=== PATIENT | female | born 1945 | race Caucasian/White ===

== ENCOUNTER 2017-09-01 14:39 | Inpatient (IN) | payer OTHER ==
[~2017-09-01] VITALS: Ht 149.9 cm; Wt 63.0 kg
[~2017-09-01 14:39] MED LIST: AMLO10TA2 PO; CYCL10TA9 PO; FURO20TA4 PO; LANS15CA18 PO; METO50TA16 PO; OXYB5TAB11 PO; THIO1CAP PO; THIO2CAP2 PO
[2017-09-01] MEDS ORDERED: LORAZEPAM 0.5 MG TABLET PO PRN (16:00)
[2017-09-01] MEDS ORDERED: TEMAZEPAM 7.5 MG CAPSULE PO PRN (16:00)
[2017-09-01] MEDS ORDERED: MAGNESIUM HYDROXIDE 30 ML UDC PO PRN (16:00)
[2017-09-01] MEDS ORDERED: ACETAMINOPHEN 325 MG TABLET PO PRN (16:00)
[2017-09-01] MEDS ORDERED: MAG HYDROX/AL HYDROX/SIMETH 30 ML UDC PO PRN (16:00)
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
[2017-09-01] MEDS: METOPROLOL TARTRATE 50 MG TABLET PO SCH (17:53)
[2017-09-01] MEDS: CYCLOBENZAPRINE 10 MG TABLET PO SCH (17:54)
[2017-09-01] MEDS ORDERED: CHLO4TAB PO (18:03)
[2017-09-01] MEDS ORDERED: CITA20TA19 PO (18:03)
[2017-09-01] MEDS ORDERED: ATOR20TA PO (18:03)
[2017-09-01] MEDS ORDERED: ASPI-1152 PO (18:03)
[2017-09-01] MEDS ORDERED: DIME25TA2 PO (18:03)
[2017-09-01] MEDS ORDERED: TIZA4TAB11 PO (18:16)
[2017-09-01] MEDS ORDERED: DOCU100C36 PO (18:16)
[2017-09-01] MEDS ORDERED: QUET200T PO (18:16)
[2017-09-01] MEDS ORDERED: FLUP5TAB PO (18:16)
[2017-09-01] MEDS ORDERED: METO50TA16 PO (18:16)
[2017-09-01] MEDS ORDERED: Z GUARD REMEDY 4 OZ OINT TP PRN (18:30)
[2017-09-01 20:31] VITALS: BP 149/71
[2017-09-01] MEDS: Z GUARD REMEDY 2 OZ OINT TP SCH (21:57)
[2017-09-02 07:44] VITALS: BP 155/71
[2017-09-02] MEDS: PANTOPRAZOLE 40 MG TABLET.DR PO SCH (08:18)
[2017-09-02] MEDS: OXYBUTYNIN CHLORIDE 5 MG TABLET PO SCH (08:18)
[2017-09-02] MEDS: CYCLOBENZAPRINE 10 MG TABLET PO SCH ×2 (08:19→16:36)
[2017-09-02] MEDS: METOPROLOL TARTRATE 50 MG TABLET PO SCH ×2 (08:19→16:37)
[2017-09-02] MEDS: FUROSEMIDE 20 MG TABLET PO SCH (08:31)
[2017-09-02] MEDS: AMLODIPINE BESYLATE 10 MG TABLET PO SCH (08:31)
[2017-09-02] MEDS: Z GUARD REMEDY 2 OZ OINT TP SCH ×2 (09:00→21:00)
[2017-09-02 16:00] VITALS: BP 138/70
[2017-09-02] MEDS: QUETIAPINE FUMARATE 100 MG TABLET PO SCH (16:36)
[2017-09-02] MEDS: CITALOPRAM HYDROBROMIDE 20 MG TABLET PO SCH (16:51)
--- NOTE | 2017-09-02 17:44 | NUR ---
GPS/RN NIKOLAS ADMINISTERED FOR INDIGESTION, WILL CONTINUE TO MONITOR.
[2017-09-02 20:00] VITALS: BP 126/56
--- NOTE | 2017-09-03 07:48 | NUR ---
WOUND CONSULT WOUND CARE RECEIVED CONSULT FOR REDNESS ON PERIANAL AREA. WOUND CARE WILL DEFER TO SURGICAL TEAM WHO ARE CURRENTLY FOLLOWING. PATIENT WITH CURRENT MANUELITO AT 17. ALL PRESSURE ULCER PREVENTION MEASURES NOTED TO BE IN PLACE.
[2017-09-03 08:00] VITALS: BP 124/68
[2017-09-03] MEDS: CITALOPRAM HYDROBROMIDE 20 MG TABLET PO SCH (10:09)
[2017-09-03] MEDS: DOCUSATE SODIUM 100 MG CAPSULE PO PRN (10:09)
[2017-09-03] MEDS: FUROSEMIDE 20 MG TABLET PO SCH (10:09)
[2017-09-03] MEDS: CYCLOBENZAPRINE 10 MG TABLET PO SCH ×2 (10:09→17:46)
[2017-09-03] MEDS: QUETIAPINE FUMARATE 100 MG TABLET PO SCH ×2 (10:09→17:46)
[2017-09-03] MEDS: PANTOPRAZOLE 40 MG TABLET.DR PO SCH (10:10)
[2017-09-03] MEDS: METOPROLOL TARTRATE 50 MG TABLET PO SCH ×2 (10:10→17:00)
[2017-09-03] MEDS: OXYBUTYNIN CHLORIDE 5 MG TABLET PO SCH (10:10)
[2017-09-03] MEDS: AMLODIPINE BESYLATE 10 MG TABLET PO SCH (10:10)
[2017-09-03] MEDS: Z GUARD REMEDY 2 OZ OINT TP SCH ×2 (10:11→21:09)
[2017-09-03] MEDS: ASPIRIN EC 81 MG TABLET.DR PO SCH (10:12)
[2017-09-03] MEDS: ATORVASTATIN 10 MG TABLET PO SCH (10:12)
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
[2017-09-03 16:07] VITALS: BP 118/59
--- NOTE | 2017-09-03 18:33 | NUR ---
Discharge Planning: EPHRAIM contacted pts son, Satnam James in [place] to inform him of pts pending discharge plan per psychiatric report (i.e. pt may discharge on 09/06/17). Pts son is very concerned about releasing his mother to the streets and asked that she not be released "until I can pick her up." Pts son reported that he would catch the next flight out to [place] in order to picking tech his mother. SW will follow up on Wednesday to ensure pt is safely and adequately discharged.
[2017-09-03 20:00] VITALS: BP 130/72
[2017-09-04 08:00] VITALS: BP 150/69
[2017-09-04] MEDS: DOCUSATE SODIUM 100 MG CAPSULE PO PRN (08:33)
[2017-09-04] MEDS: CYCLOBENZAPRINE 10 MG TABLET PO SCH ×2 (08:33→17:27)
[2017-09-04] MEDS: CITALOPRAM HYDROBROMIDE 20 MG TABLET PO SCH (08:33)
[2017-09-04] MEDS: ASPIRIN EC 81 MG TABLET.DR PO SCH (08:33)
[2017-09-04] MEDS: AMLODIPINE BESYLATE 10 MG TABLET PO SCH (08:33)
[2017-09-04] MEDS: PANTOPRAZOLE 40 MG TABLET.DR PO SCH (08:33)
[2017-09-04] MEDS: FUROSEMIDE 20 MG TABLET PO SCH (08:33)
[2017-09-04] MEDS: QUETIAPINE FUMARATE 100 MG TABLET PO SCH ×2 (08:33→17:27)
[2017-09-04] MEDS: OXYBUTYNIN CHLORIDE 5 MG TABLET PO SCH (08:33)
[2017-09-04] MEDS: Z GUARD REMEDY 2 OZ OINT TP SCH ×2 (08:34→21:14)
[2017-09-04] MEDS: METOPROLOL TARTRATE 50 MG TABLET PO SCH ×2 (08:34→17:27)
[2017-09-04] MEDS ORDERED: BOOST FOOD- BERRY 237 ML BOX PO SCH (09:00)
[2017-09-04] MEDS: ATORVASTATIN 10 MG TABLET PO SCH (12:12)
[2017-09-04 16:00] VITALS: BP 116/68
[2017-09-05 08:14] VITALS: BP 145/89
[2017-09-05] MEDS: PANTOPRAZOLE 40 MG TABLET.DR PO SCH (09:05)
[2017-09-05] MEDS: QUETIAPINE FUMARATE 100 MG TABLET PO SCH ×2 (09:06→17:57)
[2017-09-05] MEDS: ASPIRIN EC 81 MG TABLET.DR PO SCH (09:06)
[2017-09-05] MEDS: OXYBUTYNIN CHLORIDE 5 MG TABLET PO SCH (09:06)
[2017-09-05] MEDS: FUROSEMIDE 20 MG TABLET PO SCH (09:06)
[2017-09-05] MEDS: ATORVASTATIN 10 MG TABLET PO SCH (09:08)
[2017-09-05] MEDS: CITALOPRAM HYDROBROMIDE 20 MG TABLET PO SCH (09:08)
[2017-09-05] MEDS: CYCLOBENZAPRINE 10 MG TABLET PO SCH ×2 (09:09→17:55)
[2017-09-05] MEDS: AMLODIPINE BESYLATE 10 MG TABLET PO SCH (09:09)
[2017-09-05] MEDS: Z GUARD REMEDY 2 OZ OINT TP SCH ×2 (09:11→21:25)
[2017-09-05] MEDS: METOPROLOL TARTRATE 50 MG TABLET PO SCH ×2 (09:12→17:55)
[2017-09-05 10:26] LABS: BASOPHILS % (AUTO) 0.4 % (0.0-2.0); EOSINOPHILS # (AUTO) 0.1 /CMM (0.0-0.7); EOSINOPHILS % (AUTO) 1.2 % (0.0-6.0); HEMATOCRIT 38 % (33-45); HEMOGLOBIN 12.9 g/dL (11.5-14.8); LYMPHOCYTES # (AUTO) 2.2 /CMM (0.8-4.8); LYMPHOCYTES % (AUTO) 33.2 % (20.0-44.0); MEAN CORPUSCULAR HEMOGLOBIN 32 PG (26.0-33.0); MEAN CORPUSCULAR HGB CONC 34 g/dl (31.0-36.0); MEAN CORPUSCULAR VOLUME 95 fL (82-100); MONOCYTES # (AUTO) 0.5 /CMM (0.1-1.30); MONOCYTES % (AUTO) 7.6 % (2.0-12.0); NEUTROPHILS # (AUTO) 3.9 /CMM (1.8-8.9); NEUTROPHILS % (AUTO) 57.6 % (43.0-81.0); PLATELET COUNT (AUTO) 259 /CMM (150-450); RDW COEFFICIENT OF VARIATION 13.2 (11.5-15.0); RED BLOOD CELL COUNT(AUTO) 4.02 MIL/uL (4.0-5.2); WHITE BLOOD COUNT (AUTO) 6.7 K/uL (4.3-11.0)
[2017-09-05 10:44] LABS: ALANINE AMINOTRANSFERASE 33 U/L (12-78); ALBUMIN 3.3 g/dL (3.4-5.0); ALKALINE PHOSPHATASE 82 U/L (46-116); ASPARTATE AMINOTRANSFERASE 20 U/L (15-37); BILIRUBIN,TOTAL 0.4 mg/dL (0.2-1.0); CALCIUM, SERUM 9.2 mg/dL (8.5-10.1); CARBON DIOXIDE 21 mmol/L (21-32); CHLORIDE 106 mmol/L (98-107); CREATININE 1.1 mg/dL (0.6-1.3); GLUCOSE 136 mg/dL (74-106); MAGNESIUM 1.9 mg/dL (1.8-2.4); POTASSIUM 3.5 mmol/L (3.5-5.1); SODIUM SERUM 140 mmol/L (136-145); TOTAL PROTEIN, SERUM 6.7 g/dL (6.4-8.2); UREA NITROGEN, BLOOD 22 mg/dL (7-18)
[2017-09-05 16:00] VITALS: BP 121/64
[2017-09-05 20:19] VITALS: BP 109/57
[2017-09-06 08:14] VITALS: BP 135/74
[2017-09-06] MEDS: OXYBUTYNIN CHLORIDE 5 MG TABLET PO SCH (09:10)
[2017-09-06] MEDS: ATORVASTATIN 10 MG TABLET PO SCH (09:10)
[2017-09-06] MEDS: QUETIAPINE FUMARATE 100 MG TABLET PO SCH (09:10)
[2017-09-06] MEDS: METOPROLOL TARTRATE 50 MG TABLET PO SCH (09:11)
[2017-09-06] MEDS: CYCLOBENZAPRINE 10 MG TABLET PO SCH (09:11)
[2017-09-06] MEDS: PANTOPRAZOLE 40 MG TABLET.DR PO SCH (09:11)
[2017-09-06] MEDS: FUROSEMIDE 20 MG TABLET PO SCH (09:11)
[2017-09-06] MEDS: ASPIRIN EC 81 MG TABLET.DR PO SCH (09:11)
[2017-09-06 09:12] VITALS: BP 135/74
[2017-09-06] MEDS: CITALOPRAM HYDROBROMIDE 20 MG TABLET PO SCH (09:12)
[2017-09-06] MEDS: AMLODIPINE BESYLATE 10 MG TABLET PO SCH (09:12)
[2017-09-06] MEDS: Z GUARD REMEDY 2 OZ OINT TP SCH (09:19)
--- NOTE | 2017-09-06 10:58 | NUR ---
Discharge Planning: SW received a voicemail message from pts son Satnam James, stating that he was on his way to [place] from [place] and should be arriving at 9:45 am on this date. Satnam asked that pts discharge be held until he arrived stating that he would take his back home with him. EPHRAIM will follow up to ensure pt is safely and adequately discharged.
--- NOTE | 2017-09-06 11:02 | NUR ---
UR Review: EPHRAIM received a message from LIZ Woodruff Inpatient Production Checker from [place] asking for clinicals to be faxed on this date. EPHRAIM faxed clinicals (face sheet, medical H&P, P&P, and medication list) to . EPHRAIM will follow up with Kacy to ensure information was received.
--- NOTE | 2017-09-06 11:30 | NUR ---
[id number]: PT REFUSED EKG ORDERED.
--- NOTE | 2017-09-06 13:30 | NUR ---
[id number]: EDUCATED SON ABOUT THE EXIT CARE AND MEDICATION LIST. SPOKE WITH TATIANNA TO CALL IN PT'S MEDICATION INTO PHARMACY AT [phone] AND FAX NUMBER [phone]
--- NOTE | 2017-09-06 13:40 | NUR ---
[id number]: PT IS 72 YEARS OLD MALE DISCHARGE TO HOME ACCOMPANIED BY SON ALEXANDRIA HORN IN STABLE CONDITION. COMPLAINT WITH MEDICATIONS, COOPERTIVE WITH TREATMENT PLANS. PT DENIES SI/HI AND INSTRUCTED TO GO TO THE CLOSEST ER IF DEVELOPING SI/HI. BEHAVIOR IMPROVED, PSYCHIATRIC TX PLANS MET, MEDICAL TX PLANS DEFERRED FOR CONTINUAL MONITORING. EDUCATED PT ABOUT AFTER CARE PLAN AND COPY PROVIDED. RETURNED PERSONAL BELONGINGS TO PT. MEDICATIONS RECONCILED WITH DR. FAIRCHILD AND MANAGER RESEARCH BLANK LAWSON. REPORT GIVEN TO ANGELA HORN FOR CONTINUNITY OF CARE. PT IS UNABLE TO SIGN AT THIS TIME. SKIN ASSESSMENT DONE. PT LEFT VIA PRIVATE CAR ACCOMPANIED BY SON. Addendum: 09/06/17 at 1600 by CALI HOUSER RN ANGELA IBRAHIM STATED, "I WILL TAKE CARE OF MY MOM AND I'M FULLY RESPONSIBLE FOR MY MOM'S WELL BEING. "
[2017-09-06] MEDS ORDERED: DONEPEZIL 5 MG TABLET PO SCH (22:00)
== END 2017-09-06 13:40 | disposition home or self-care (01) | DRG 885 ==
LOC: GPS 15:35
PROVIDERS: ADMIT Psychiatry & Neurology Psychiatry; ATTEND Internal Medicine
DX: F32.3 Major depressive disorder, single episode, severe with psychotic features (principal); I11.0 Hypertensive heart disease with heart failure; F03.90 Unspecified dementia, unspecified severity, without behavioral disturbance, psychotic disturbance, mood disturbance, and anxiety; I50.9 Heart failure, unspecified; F29 Unspecified psychosis not due to a substance or known physiological condition; E78.5 Hyperlipidemia, unspecified; F32.9 Major depressive disorder, single episode, unspecified; F41.9 Anxiety disorder, unspecified; I25.10 Atherosclerotic heart disease of native coronary artery without angina pectoris; Z79.899 Other long term (current) drug therapy; Z86.73 Personal history of transient ischemic attack (TIA), and cerebral infarction without residual deficits; Z73.6 Limitation of activities due to disability; L98.8 Other specified disorders of the skin and subcutaneous tissue; S30.0XXA Contusion of lower back and pelvis, initial encounter; S70.10XA Contusion of unspecified thigh, initial encounter; X58.XXXA Exposure to other specified factors, initial encounter; Y93.9 Activity, unspecified; Y92.009 Unspecified place in unspecified non-institutional (private) residence as the place of occurrence of the external cause; Y99.9 Unspecified external cause status
CPT/HCPCS: 36415; 70450-TC; 80053-TC; 83735-TC; 85025-TC; 87081-TC